=== PATIENT | female | born 1985 | race Caucasian/White ===

== ENCOUNTER 2021-08-20 15:42 | Emergency (ER) | payer MEDICAID ==
[2021-08-20] MEDS ORDERED: Boostrix 0.5 ML (Tdap) VIAL ONE (16:16)
== END 2021-08-20 17:03 | disposition home or self-care (01) ==
LOC: ERS 15:42
DX: O99.511 Diseases of the respiratory system complicating pregnancy, first trimester (principal); J06.9 Acute upper respiratory infection, unspecified; Z3A.12 12 weeks gestation of pregnancy
CPT/HCPCS: 90715; 99283

== ENCOUNTER 2021-10-18 14:39 | Outpatient (CLI) | payer OTHER | END 2021-10-18 14:40 | disposition home or self-care (01) | LOC: BICULT 14:39 | PROVIDERS: ATTEND Family Medicine | DX: O09.522 Supervision of elderly multigravida, second trimester (principal); Z3A.22 22 weeks gestation of pregnancy | CPT/HCPCS: 76805 ==